=== PATIENT | female | born 1965 | race Hispanic/Latino ===

== ENCOUNTER 2017-11-17 10:05 | Emergency (ER) | payer BC, OTHER ==
[2017-11-17] MEDS ORDERED: Metoclopramide HCl 10 MG/2 ML VIAL ONE (10:21)
[2017-11-17] MEDS ORDERED: diphenhydrAMINE 50 MG/ML VIAL ONE (10:21)
[2017-11-17] MEDS ORDERED: Ketorolac Tromethamine 30 MG/ML VIAL ONE (10:21)
== END 2017-11-17 11:00 | disposition home or self-care (01) ==
LOC: SCSER 10:05
DX: R51 Headache (principal); G43.909 Migraine, unspecified, not intractable, without status migrainosus
CPT/HCPCS: 96374; 96375; J1200; J1885; J2765

== ENCOUNTER 2017-12-29 13:29 | Outpatient (CLI) | payer OTHER | END 2017-12-29 13:30 | disposition home or self-care (01) | LOC: BICMAMMO 13:29 | PROVIDERS: ATTEND Family Medicine | DX: Z12.31 Encounter for screening mammogram for malignant neoplasm of breast (principal); Z13.820 Encounter for screening for osteoporosis; M85.89 Other specified disorders of bone density and structure, multiple sites; Z80.3 Family history of malignant neoplasm of breast | CPT/HCPCS: 77063; 77067; 77080 ==

== ENCOUNTER 2018-04-21 09:10 | Outpatient (CLI) | payer OTHER | END 2018-04-21 09:11 | disposition home or self-care (01) | LOC: BICMAMMO 09:10 | PROVIDERS: ATTEND Obstetrics & Gynecology | DX: N64.4 Mastodynia (principal); N64.89 Other specified disorders of breast; Z80.3 Family history of malignant neoplasm of breast | CPT/HCPCS: G0279 ==

== ENCOUNTER 2019-03-10 13:40 | Outpatient (CLI) | payer OTHER ==
--- NOTE | 2019-03-10 14:21 | MMO ---
Bilateral MAMMO Bilat Screen [id number]. CLINICAL HISTORY: Patient is 53 years old and is seen for screening. The patient has the following family history of breast cancer: mother, malignant (generic). The patient has no personal history of cancer. VIEWS: The views performed were: bilateral craniocaudal with tomosynthesis and bilateral mediolateral oblique with tomosynthesis. FILMS COMPARED: The present examination has been compared to prior imaging studies performed at [facility] on 04/27/2010, 07/02/2013, 12/29/2017 and 04/21/2018. MAMMOGRAM FINDINGS: The breasts are heterogeneously dense, which could obscure a lesion on mammography. There are no suspicious masses, suspicious calcifications, or new areas of architectural distortion. IMPRESSION: THERE IS NO MAMMOGRAPHIC EVIDENCE OF MALIGNANCY. A ROUTINE FOLLOW-UP MAMMOGRAM IN 1 YEAR IS RECOMMENDED. THE RESULTS OF THIS EXAM WERE SENT TO THE PATIENT. ACR BI-RADS Category 1 - Negative MAMMOGRAPHY NOTE: 1. A negative mammogram report should not delay a biopsy if a dominant of clinically suspicious mass is present. 2. Approximately 10% to 15% of breast cancers are not detected by mammography. 3. Adenosis and dense breasts may obscure an underlying neoplasm. Reported by: JAIRO SAUCEDO MD Electonically Signed: [id number]
== END 2019-03-10 13:41 | disposition home or self-care (01) ==
LOC: BICMAMMO 13:40
PROVIDERS: ATTEND Obstetrics & Gynecology
DX: Z12.31 Encounter for screening mammogram for malignant neoplasm of breast (principal); Z80.3 Family history of malignant neoplasm of breast
CPT/HCPCS: 77063; 77067

== ENCOUNTER 2020-11-23 13:08 | Outpatient (CLI) | payer OTHER ==
[2020-11-23 22:03] LABS: SARS-CoV-2 PCR by NAA Not Detected (NotDetected)
== END 2020-11-23 13:09 | disposition home or self-care (01) ==
LOC: LABBT 13:08
PROVIDERS: ATTEND Internal Medicine Gastroenterology
DX: Z01.812 Encounter for preprocedural laboratory examination (principal); K62.5 Hemorrhage of anus and rectum; Z20.822 Contact with and (suspected) exposure to COVID-19
CPT/HCPCS: 87635; U0003; U0005

== ENCOUNTER 2020-11-28 06:08 | Day surgery (SDC) | payer OTHER ==
[2020-11-27 12:34] VITALS: BMI 26.9
[2020-11-28] MEDS ORDERED: PROPOFOL 200 MG/20 ML VIAL ONE (08:16)
== END 2020-11-28 10:16 | disposition home or self-care (01) ==
LOC: SDC 06:08
PROVIDERS: ATTEND Internal Medicine Gastroenterology
PROC: 0DJD8ZZ Inspection of Lower Intestinal Tract, Via Natural or Artificial Opening Endoscopic (ICD-10-PCS; principal; 2020-11-28)
DX: K57.31 Diverticulosis of large intestine without perforation or abscess with bleeding (principal); K64.4 Residual hemorrhoidal skin tags; Q43.8 Other specified congenital malformations of intestine; K59.00 Constipation, unspecified; E78.5 Hyperlipidemia, unspecified; Z79.899 Other long term (current) drug therapy; Z88.0 Allergy status to penicillin; Z88.1 Allergy status to other antibiotic agents; Z88.5 Allergy status to narcotic agent
CPT/HCPCS: J2704

== ENCOUNTER 2021-05-23 15:13 | Outpatient (CLI) | payer OTHER | END 2021-05-23 15:14 | disposition home or self-care (01) | LOC: BICMAMMO 15:13 | PROVIDERS: ATTEND Student in an Organized Health Care Education/Training Program | DX: Z12.31 Encounter for screening mammogram for malignant neoplasm of breast (principal); Z13.820 Encounter for screening for osteoporosis; Z78.0 Asymptomatic menopausal state; Z80.3 Family history of malignant neoplasm of breast; M85.89 Other specified disorders of bone density and structure, multiple sites | CPT/HCPCS: 77063; 77067; 77080 ==

== ENCOUNTER 2021-09-17 22:19 | Emergency (ER) | payer OTHER, SELFPAY ==
[2021-09-17] MEDS ORDERED: Ondansetron ODT 4 MG TAB ONE (22:42)
[2021-09-17 23:05] LABS: #Lymphocytes 0.4 thou/uL (1.20-3.40); #Monocytes 0.3 thou/uL (0.11-0.59); #Neutrophils 6.1 thou/uL (1.40-6.50); %Basophils 0.2 % (0.0-1.0); %Eosinophils 0.5 % (0.0-10.0); %Lymphocytes 5.5 % (21.0-51.0); %Monocytes 3.9 % (0.0-10.0); %Neutrophils 89.9 % (42.0-75.0); Hemoglobin 13.3 g/dL (12.0-16.0); Mean Corpuscular HGB CONC 34.2 g/dL (32.0-36.0); Mean Corpuscular Hemoglobin 32.7 pg (27.0-31.0); Mean Corpuscular Volume 95.6 fL (78.0-98.0); Platelet Count 197 thou/uL (130-400); RBC Distribution Width 11.8 % (11.5-14.5); Red Blood Cell (RBC) Count 4.07 mill/uL (4.20-5.40); White Blood Cell (WBC) Count 6.8 thou/uL (4.8-10.8)
[2021-09-17 23:31] LABS: ALT (SGPT) 16 U/L (8-55); AST (SGOT) 19 U/L (5-34); Alkaline Phosphatase 57 U/L (40-110); Anion Gap 13 mmol/L (10-20); BUN (Urea Nitrogen) 12 mg/dL (9.8-20.1); Bilirubin, Total 0.5 mg/dL (0.2-1.2); Calc. Creatinine Clearance 0 mL/min (70-130); Calcium 8.7 mg/dL (7.8-10.44); Carbon Dioxide 23 mmol/L (22-29); Chloride 105 mmol/L (98-107); Globulin 2.3 g/dL (2.4-3.5); Glucose 127 mg/dL (70-105); Lipase 26 U/L (8-78); Potassium 3.4 mmol/L (3.5-5.1); Protein, Total 6.3 g/dL (6.0-8.3); Sodium 138 mmol/L (136-145)
[2021-09-17] MEDS ORDERED: Acetaminophen 500 MG TAB ONE (23:31)
[2021-09-17 23:41] LABS: Bilirubin Negative (Negative); Blood, Urine Negative (Negative); Clarity Clear (Clear); Glucose, Urine (Dipstick) Normal (Negative); Ketone, Urine 10 mg/dL (Negative); Leukocyte Negative Leu/uL (Negative); Nitrite Negative (Negative); Protein, Urine (Dipstick) Negative (Neg-Trace); Specific Gravity, Urine 1.015 (1.002-1.036); Urobilinogen Normal mg/dL (Less than 2); pH, Urine 6.5 (5.0-9.0)
[2021-09-18 13:28] LABS: SARS-CoV-2 PCR by NAA Not Detected (NotDetected)
== END 2021-09-18 00:53 | disposition home or self-care (01) ==
LOC: ERS 22:19
DX: B34.9 Viral infection, unspecified (principal); R55 Syncope and collapse; Z20.822 Contact with and (suspected) exposure to COVID-19
CPT/HCPCS: 36415; 71045; 80053; 81003; 83690; 84484; 85025; 87804; 93005; Q0162; U0003; U0005

== ENCOUNTER 2022-04-29 11:22 | Outpatient (CLI) | payer OTHER | END 2022-04-29 11:23 | disposition home or self-care (01) | LOC: SCSRAD 11:22 | PROVIDERS: ATTEND Student in an Organized Health Care Education/Training Program | DX: M25.512 Pain in left shoulder (principal) ==

== ENCOUNTER 2022-05-28 11:02 | Outpatient (CLI) | payer OTHER | END 2022-05-28 11:03 | disposition home or self-care (01) | LOC: BICMAMMO 11:02 | PROVIDERS: ATTEND Student in an Organized Health Care Education/Training Program | DX: Z12.31 Encounter for screening mammogram for malignant neoplasm of breast (principal); Z80.3 Family history of malignant neoplasm of breast | CPT/HCPCS: 77063; 77067 ==

== ENCOUNTER 2023-06-13 10:46 | Outpatient (CLI) | payer OTHER | END 2023-06-13 10:47 | disposition home or self-care (01) | LOC: BICMAMMO 10:46 | PROVIDERS: ATTEND Obstetrics & Gynecology | DX: Z12.31 Encounter for screening mammogram for malignant neoplasm of breast (principal); Z80.3 Family history of malignant neoplasm of breast | CPT/HCPCS: 77063; 77067 ==

== ENCOUNTER 2024-02-05 08:13 | Outpatient (CLI) | payer OTHER | END 2024-02-05 08:14 | disposition home or self-care (01) | LOC: BICCT 08:13 | PROVIDERS: ATTEND Family Medicine | DX: K85.90 Acute pancreatitis without necrosis or infection, unspecified (principal); K42.9 Umbilical hernia without obstruction or gangrene | CPT/HCPCS: 74177; 82565 ==

== ENCOUNTER 2024-06-17 13:53 | Outpatient (CLI) | payer OTHER | END 2024-06-17 13:54 | disposition home or self-care (01) | LOC: BICMAMMO 13:53 | PROVIDERS: ATTEND Obstetrics & Gynecology | DX: Z12.31 Encounter for screening mammogram for malignant neoplasm of breast (principal); Z80.3 Family history of malignant neoplasm of breast | CPT/HCPCS: 77063; 77067 ==

== ENCOUNTER 2024-07-21 14:41 | Outpatient (CLI) | payer OTHER | END 2024-07-21 14:42 | disposition home or self-care (01) | LOC: SCSRAD 14:41 | PROVIDERS: ATTEND Family Medicine | DX: M47.26 Other spondylosis with radiculopathy, lumbar region (principal); M47.817 Spondylosis without myelopathy or radiculopathy, lumbosacral region | CPT/HCPCS: 72120 ==

== ENCOUNTER 2025-05-23 11:41 | Outpatient (CLI) | payer OTHER | END 2025-05-23 11:42 | disposition home or self-care (01) | LOC: SCSRAD 11:41 | PROVIDERS: ATTEND Family Medicine | DX: M25.561 Pain in right knee (principal); M71.21 Synovial cyst of popliteal space [Baker], right knee ==

== ENCOUNTER 2025-07-05 14:42 | Outpatient (CLI) | payer OTHER | END 2025-07-05 14:43 | disposition home or self-care (01) | LOC: BICMAMMO 14:42 | PROVIDERS: ATTEND Family Medicine | DX: Z12.31 Encounter for screening mammogram for malignant neoplasm of breast (principal); Z80.3 Family history of malignant neoplasm of breast; R92.333 Mammographic heterogeneous density, bilateral breasts | CPT/HCPCS: 77063; 77067 ==